=== PATIENT | male | born 1950 | race Caucasian/White ===

== ENCOUNTER → 2024-03-14 | Outpatient (CLI) | payer OTHER, SELFPAY ==
[2024-03-14 10:55] LABS: Alanine Aminotransferase 78 U/L (10-49); Albumin, Serum 4.6 gm/dL (3.4-4.8); Albumin/Globulin Ratio 1.6 (1.2-2.2); Alkaline Phosphatase 52 U/L (46-116); Anion Gap 5 (7-16); Aspartate Amino Transferase 54 U/L (0-34); BUN/Creatinine Ratio 12 Ratio (12-20); Bilirubin,Total 1.2 mg/dL (0.3-1.2); Blood Urea Nitrogen 14 mg/dL (9-23); Calcium 9.8 mg/dL (8.3-10.6); Calcium (Corrected) 9.8 mg/dL (8.5-10.1); Carbon Dioxide 29.6 mMol/L (20.0-31.0); Chloride 106 mMol/L (98-107); Creatinine (Component) 1.2 mg/dL (0.6-1.3); Globulin 2.8 gm/dL (2.3-3.5); Glucose 102 mg/dL (74-106); Osmolality,Calculated 281 (275-295); Sodium 141 mMol/L (136-145); Total Protein 7.4 gm/dL (5.7-8.2); eGFR > 60 See Note
== END | disposition home or self-care (01) ==
LOC: COPL 09:55
PROVIDERS: PCP Family Medicine; Referring Provider Family Medicine; Visit Provider Family Medicine
DX: Z13.1 Encounter for screening for diabetes mellitus (principal)
CPT/HCPCS: 36415; 80053

== ENCOUNTER → 2024-06-27 | Outpatient (CLI) | payer MEDICARE, BC, SELFPAY ==
--- NOTE | 2024-06-27 | XR_ITS ---
Examination: Ribs, left, with PA chest, 5 views Technique: Chest PA, RIBS AP, RPO, LPO, AP coned lower ribs 5 views Exam date and time: June 27, 2024 at 1302 p.m. INDICATIONS: Left rib pain beginning 4 days ago no trauma Findings: No significant cardiac enlargement Ectatic thoracic aorta No pneumothorax Opacity left base and right base, bronchitis versus early bronchopneumonia Prominent osteopenia Old fracture left seventh rib in the midaxillary line IMPRESSION: Bibasilar bronchitis versus early bronchopneumonia, clinical correlation advised No acute left rib fractures
== END | disposition home or self-care (01) ==
PROVIDERS: Referring Provider Family Medicine; Visit Provider Family Medicine
DX: R07.81 Pleurodynia (principal)
CPT/HCPCS: 71101

== ENCOUNTER → 2025-01-16 | Outpatient (CLI) | payer MEDICARE, BC, SELFPAY ==
--- NOTE | 2025-01-16 09:00 | XR_ITS ---
Examination: Ultrasound abdominal aorta Date and time: January 16, 2025 0925 hours INDICATIONS: Smoking history 20 years. TECHNIQUE AND FINDINGS: Grayscale sonographic images abdominal aorta Transverse dimension proximal aorta 2.7 cm mid aorta 2.2 cm distal aorta 2.2 cm right iliac 1.8 cm left iliac 1.8 cm IMPRESSION: Negative for abdominal aortic aneurysm
== END | disposition home or self-care (01) ==
PROVIDERS: PCP Family Medicine; Referring Provider Family Medicine; Visit Provider Family Medicine
DX: F17.200 Nicotine dependence, unspecified, uncomplicated (principal)
CPT/HCPCS: 76770

== ENCOUNTER → 2025-01-31 | Outpatient (CLI) | payer MEDICARE, BC, SELFPAY ==
[2025-01-31 09:31] LABS: Basophils # (Auto) 0.1 Thou/mm3 (0.0-0.2); Basophils % (Auto) 1 % (0-2.5); Eosinophils # (Auto) 0.2 Thou/mm3 (0.0-0.5); Eosinophils % (Auto) 3 % (0-10); Hematocrit 41.0 % (41.0-53.0); Hemoglobin 14.0 g/dL (13.5-16.0); Immature Granulocytes Auto 0.02 Thou/mm3 (0.00-0.00); Lymphocytes # (Auto) 2.0 Thou/mm3 (1.0-4.8); Lymphocytes % (Auto) 29 % (10-50); Mean Corpuscular HGB Conc 34.1 g/dl (31.0-37.0); Mean Corpuscular Hemoglobin 29.5 pg (25.0-35.0); Mean Corpuscular Volume 86 fL (80-100); Monocytes # (Auto) 1.0 Thou/mm3 (0.0-0.8); Monocytes % (Auto) 14 % (0-12); Neutrophils # (Auto) 3.7 Thou/mm3 (1.8-7.7); Neutrophils % (Auto) 53 % (37-80); Nucleated Red Blood Cell # 0.00 Thou/mm3 (0.00-0.00); Nucleated Red Blood Cell % 0 /100 WBC (0); Platelet Count 240 Thou/mm3 (140-440); RDW Standard Deviation 43.5 fL (35.1-43.9); Red Blood Count 4.75 Miln/mm3 (4.50-5.90); White Blood Count 6.8 Thou/mm3 (3.8-10.6)
[2025-01-31 09:55] LABS: Alanine Aminotransferase 89 U/L (10-49); Albumin, Serum 4.4 gm/dL (3.4-4.8); Albumin/Globulin Ratio 1.4 (1.2-2.2); Alkaline Phosphatase 51 U/L (46-116); Anion Gap 9 (7-16); Aspartate Amino Transferase 68 U/L (0-34); BUN/Creatinine Ratio 11 Ratio (12-20); Bilirubin,Total 1.2 mg/dL (0.3-1.2); Blood Urea Nitrogen 13 mg/dL (9-23); Calcium 9.4 mg/dL (8.3-10.6); Calcium (Corrected) 9.4 mg/dL (8.5-10.1); Carbon Dioxide 27.3 mMol/L (20.0-31.0); Cardiac Risk Estimate 5.1 RATIO (4.0-6.7); Chloride 105 mMol/L (98-107); Cholesterol 175 mg/dL (132-200); Creatinine (Component) 1.2 mg/dL (0.6-1.3); Free T4 (Free Thyroxine) 1.16 ng/dL (0.89-1.76); Globulin 3.1 gm/dL (2.3-3.5); Glucose 106 mg/dL (74-106); HDL Cholesterol 34 mg/dL (40-60); LDL Cholesterol,Calculated 116 mg/dL (0-130); Osmolality,Calculated 281 (275-295); Potassium 3.9 mMol/L (3.4-5.1); Sodium 141 mMol/L (136-145); Thyroid Stimulating Hormone 2.25 uIU/mL (0.55-4.78); Total Protein 7.5 gm/dL (5.7-8.2); Triglycerides 124 mg/dL (30-150); eGFR > 60 See Note
[2025-01-31 10:00] LABS: Prostate Specific Antigen 0.34 ng/mL (0-4.00)
== END | disposition home or self-care (01) ==
PROVIDERS: PCP Family Medicine; Referring Provider Family Medicine; Visit Provider Family Medicine
DX: D50.0 Iron deficiency anemia secondary to blood loss (chronic) (principal); N42.9 Disorder of prostate, unspecified; E78.1 Pure hyperglyceridemia; Z13.1 Encounter for screening for diabetes mellitus
CPT/HCPCS: 36415; 80053; 80061; 84153; 84439; 84443; 85025

== ENCOUNTER 2025-03-10 13:20 | Emergency (ER) | payer MEDICARE, BC, SELFPAY ==
[2025-03-10 13:21] VITALS: BP 149/83; PULSE 73; RESP 20; TEMP 36.4; O2SAT 99; BMI 27.2
[2025-03-10 13:30] VITALS: PULSE 83; O2SAT 96; BMI 27.2
--- NOTE | 2025-03-10 13:30 | XR_ITS ---
Examination: CT brain head without contrast. 2-D sagittal coronal reconstructions Date and time of exam: March 10, 2025, 1410 hours INDICATIONS: Patient fell off a ladder today with injury of the head, head pain CTDI: vol (mGy): 54.5 DLP: (mGycm): 1104 Technique: Multiple CT axial sections of the brain have been obtained, 5 mm slice thickness. Contrast has not been administered. 2-D sagittal, coronal reconstructions have been obtained Low dose protocols were performed. One or more of the following dose reduction techniques were used; automated exposure control, adjustment of the mA and/or KV according to patient size, use of iterative reconstruction technique. Findings: No significant ventricular enlargement. Intra-axial or extra-axial hemorrhage density is not seen. No mass effect or midline shift Basal cisterns are not remarkable. Fourth ventricle is midline. Cranial vault intact. Impression: Negative for acute hemorrhage, mass effect or midline shift
--- NOTE | 2025-03-10 13:30 | XR_ITS ---
Examination: CT cervical spine without contrast 2-D sagittal reconstructions 2-D coronal reconstructions 3-D reconstructions. Exam date and time: March 10, 2025, 1410 hours INDICATIONS: Patient fell off a ladder today with injury to the neck, neck pain CTDI:vol (mGy) 16.3 DLP: (mGycm) 402 Technique: Multiple 2 mm axial sections of the cervical spine have been obtained. The coronal and sagittal reconstructions have been obtained. 3-D reconstructions have been obtained. Low dose protocols were performed. One or more of the following dose reduction techniques were used; automated exposure control, adjustment of the mA and/or KV according to patient size, use of iterative reconstruction technique. Findings: Axial sections demonstrate intact base of the skull. C1 exhibit satisfactory relationship to the odontoid. No acute cervical vertebral body fracture seen. Alignment posterior spinous processes satisfactory. Impression: No acute cervical fracture.
--- NOTE | 2025-03-10 13:32 | XR_ITS ---
EXAMINATION: AP chest single view TECHNIQUE: AP portable semiupright chest single view Date and time: March 10, 2025 1433 hours INDICATIONS: Shortness of breath today. FINDINGS: Normal heart size The lungs are clear. The osseous structures are intact IMPRESSION: No active disease
--- NOTE | 2025-03-10 13:33 | PD.EDFALL ---
ED Fall Injury RME/HPI General Chief Complaint: Fall Stated Complaint: FALL Time Seen by Provider: 03/10/25 13:24 Arrival date/time: 03/10/25 13:20 74-year-old male patient came in for evaluation after a fall. Patient was brought in by EMS for evaluation after patient fell from a ladder about 5 feet high patient slipped and fell hitting his head on the concrete. Patient sustained 2 cm gaping laceration to the occipital area. Patient also complained of posterior neck pain severity mild. Denies any thoracic pain denies any lumbar pain denies any pelvic pain denies any chest pain or abdominal pain. Patient tetanus vaccination is less than 3 years old. Incident happened few minutes prior to ER visit. Related Data Home Medications ?Medication ?Instructions ?Recorded ?Confirmed acyclovir 400 mg tablet 400 mg PO BID 07/17/20 07/17/20 amlodipine 5 mg tablet 5 mg PO HS 07/17/20 07/17/20 tamsulosin 0.4 mg capsule 0.4 mg PO HS 07/17/20 07/17/20 Allergies Allergy/AdvReac Type Severity Reaction Status Date / Time No Known Allergies Allergy Unverified 03/10/25 13:39 Review of Systems Review of Systems Narrative Review of Systems: Review of system reviewed and within normal limits except mentioned in HPI ED Exam Narrative Physical exam: VITAL SIGNS: Reviewed. GENERAL APPEARANCE: Alert and interactive, follows commands, no acute distress, HEAD AND FACE: +2 cm scalp laceration occipital area no active bleeding noted gaping ENT: PERRL, pink conjunctivitis, eyelid no trauma, Mucous membrane moist. NECK: Supple, nontender, no nuchal rigidity. CHEST: No tenderness, no crepitus, no paradoxical movement, no retractions. LUNGS: Clear, well ventilated, symmetric, no rales, no wheezing, no ronchi, no stridor, good breath sounds bilaterally. HEART: Regular rate, regular rhythm, no murmur, no gallops. ABDOMEN: Soft, positive bowel sounds, nondistended, no guarding, nontender, no rebound, no masses, RECTAL: Deferred. GENITAL: Deferred. NEUROLOGICAL: Gross motor function intact sensory function intact, Appropriate for age. MUSCULOSKELETAL: low back nontender, full range of motion. EXTREMITIES: Nontender, full range of motion. SKIN: Color pink, dry, no rash, no lacerations, no abrasions, no contusions. LYMPHATICS: Deferred. Course Quality Measures none Orders Category Date Time Status CT cervical spine wo con Stat Exams 03/10/25 13:[address] head/brain wo con Stat Exams 03/10/25 13:30 Completed XR chest 1V Stat Exams 03/10/25 13:32 Completed HYDROcodone*/APAP 5/325 [Gray 5/325] Med 03/10/25 13:30 Discontinued 1 tab PO X1 ONE Vital Signs Vital signs: Vital Signs Temperature 97.6 F 03/10/25 13:21 Pulse Rate 73 03/10/25 13:21 Respiratory Rate 20 03/10/25 13:21 Blood Pressure 149/83 H 03/10/25 13:21 Pulse Oximetry (%) 99 03/10/25 13:21 Oxygen Delivery Method Room Air 03/10/25 13:21 Fall MDM Narrative MDM Narrative:: 74-year-old male patient came in for evaluation after a fall. Patient was brought in by EMS for evaluation after patient fell from a ladder about 5 feet high patient slipped and fell hitting his head on the concrete. Patient sustained 2 cm gaping laceration to the occipital area. Patient also complained of posterior neck pain severity mild. Denies any thoracic pain denies any lumbar pain denies any pelvic pain denies any chest pain or abdominal pain. Patient tetanus vaccination is less than 3 years old. Incident happened few minutes prior to ER visit. CT scan of the head came back unremarkable. CT scan of the neck came back unremarkable. Chest x-ray came back unremarkable. Results discussed with the patient. Scalp laceration cleaned with NS, and tee applied x 2 patient tolerated the procedure well. No anesthesia was used. Sterile dressing applied Stable for discharge home. Patient data External records reviewed:: None Clinical information provided by:: patient Social determinants that could affect healthcare access:: none Patient has the following chronic illnesses:: Hypertension How is presenting disease/condition affected by chronic disease/condition?: no chronic disease Evaluation data The following diagnostics were reviewed and interpreted by me:: radiology exam(s) Lab and/or radiology exams considered but not ordered:: None Interpretation Summary: See results MDM Medications / Prescriptions Medications or Prescriptions considered but not ordered:: None Medication administrations:: Medication Administration History Discontinued Medications Hydrocodone Bitart/Acetaminophen (Hydrocodone/Apap 5/325 Tablet) 1 tab PO X1 ONE Stop: 03/10/25 13:31 Last Admin: 03/10/25 13:53 Dose: 1 tab Documented By: CHRISTINA Kellogg Consultations Consultation(s) initiated? (list below): No Diagnosis Fall Differential Diagnosis: other (Fall, scalp laceration, elbow abrasions, intracranial bleed) Most likely diagnosis given after review of the tests above:: Fall, elbow abrasion, scalp laceration Admission Indicated Admission indicated?: not indicated Admission Request Was there a request for admission?: No Disposition Plan Disposition Plan: Discharge Discharge Attestation Discharge Attestation: The patient and all family members were given an opportunity to ask questions and understood the discharge instructions. Discharge instructions specifically effects, indications for sooner follow up or return to the emergency department, and the expected course of current diagnosis. Patient condition: Stable Discharge Plan Plan Patient Disposition: HOME (Self Care) Discharge Disposition comment: stable Prescriptions/Referrals Prescriptions/Med Rec: No Action amlodipine 5 mg Tablet 5 mg PO HS acyclovir 400 mg Tablet 400 mg PO BID tamsulosin 0.4 mg Capsule 0.4 mg PO HS Problem List Clinical Impression: Laceration of occipital scalp, Fall, Abrasion of elbow Patient/Caregiver Discharge Instructions Discharge Activity: activity as tolerated Education Materials: ED Abrasions Additional Instructions: Thank you for the opportunity for serving you today. You are stable for discharged . You are advised to: Follow-up with your PCP in 1 to 2 days Return to ED for worsening of symptoms Increase oral fluids Take medication as prescribed Daily dressing with triple antibiotic as needed For removal of tee in 7 days You may take Tylenol or Motrin as needed for pain Print Language: Spanish Stand Alone Forms: Cherry Award Info., Patient Portal Info Letter DEEPIKA/JING Supervising Physician DEEPIKA/JING Supervising Physician: MD Carlton
--- NOTE | 2025-03-10 13:47 | PC.NURSE ---
QAMAR FROM HOME FOR FALL FROM 4-5 FT FROM LADDER WHILE CLEANING GUTTERS. POSITIVE HEAD STRIKE UNKNOWN LOC, UNABLE TO AMBULATE AFTER FALL, HAD TO CRAWL BACK INTO HOUSE. PT DENIES ANY BLOOD THINNERS. PT COMPLAINING OF RINGING TO RIGHT EAR, PT STATES IT SOUNDS LIKE A KAZOO . PT HAS 2 LACERATIONS TO BACK OF HEAD, COMPLAINING OF 6 OUT OF 10 HEAD PAIN. PT HAS SKIN TEAR TO LEFT ELBOW, COMPLAINING OF LEFT ARM PAIN. IV PLACED AND WILL MEDICATE FOR PAIN AND CONTINUE WITH PLAN OF CARE.
[2025-03-10] MEDS: HYDROcodone/APAP 5/325 TABLET 1 TAB PO (13:53)
[2025-03-10 14:17] VITALS: BP 134/86; PULSE 66; RESP 20; TEMP 36.6; O2SAT 99
== END 2025-03-10 15:48 | disposition home or self-care (01) ==
LOC: SERX 16:18
PROVIDERS: Emergency Provider Family Medicine
DX: S01.01XA Laceration without foreign body of scalp, initial encounter (principal); Z23 Encounter for immunization; W11.XXXA Fall on and from ladder, initial encounter
CPT/HCPCS: 12001; 90715; 70450; 71045; 72125; 99283; A9270

== ENCOUNTER → 2025-03-29 | Outpatient (CLI) | payer MEDICARE, BC, SELFPAY ==
--- NOTE | 2025-03-29 15:06 | XR_ITS ---
EXAMINATION: PA lateral chest 2 views TECHNIQUE: Upright PA lateral chest 2 views Date and time: March 29, 2025, 1519 hours INDICATIONS: Coughing today. FINDINGS: Bibasilar accentuation of bronchovascular markings No lobar pneumonia Normal heart size Prominent osteopenia IMPRESSION: Bibasilar bronchitis pattern
== END | disposition home or self-care (01) ==
PROVIDERS: PCP Family Medicine; Referring Provider Family Medicine; Visit Provider Family Medicine
DX: R05.9 Cough, unspecified (principal)
CPT/HCPCS: 71046